=== PATIENT | female | born 1990 | race Two or more races ===

== ENCOUNTER 2025-01-26 08:45 | Inpatient (IN) | payer BC, SELFPAY ==
[2025-01-26] VITALS (62 sets, daily range): BP systolic 98–168; BP diastolic 50–136; PULSE 65–101; RESP 14–20; TEMP 36.4–36.8; O2SAT 85–100; BMI 39.4
--- NOTE | 2025-01-26 11:09 | ESHP_ITS ---
RE: PRAVIN WINKLER : 1990 DATE OF ADMISSION: 01/26/2025 HISTORY OF PRESENT ILLNESS: This is a 34-year-old 3, para 2-0-0-2 with due date of 01/27 with intrauterine at 39 weeks and 6 days. She presents to labor and delivery complaining of contractions. She was initially assessed and found to be about 2 cm. She ambulated for an hour or 2 and was found then to be 5 cm, so she was admitted for early labor. She denies any leaking or bleeding. She reports normal movements. ALLERGIES: NO KNOWN DRUG ALLERGIES. MEDICATIONS: 1. multivitamin 1 p.o. daily. 2. Aspirin 81 mg 1 p.o. daily. PAST MEDICAL HISTORY: Leiomyomatous uterus, advanced maternal age, bilateral inguinal hernias. SOCIAL HISTORY: She denies any alcohol, drug use, or smoking. FAMILY HISTORY: Mother has migraine headaches and hypertension. Brother and sister have depression and anxiety. Maternal grandmother has diabetes. Maternal aunt has breast cancer and diabetes. OBSTETRIC HISTORY: 02/2009, 40 week, normal vaginal delivery, 7-pound male. No complications. 02/2014, 40 week, normal vaginal delivery, 7 pound 2 ounce female. No complications. PAST SURGICAL HISTORY: Abdominoplasty, bilateral inguinal herniorrhaphy. REVIEW OF SYSTEMS: She denies any chest pain, palpitations, cough, fever, shortness of breath, or lower extremity pain. PHYSICAL EXAMINATION: VITAL SIGNS: Blood pressure 120/73, heart rate 88, respirations 18, temperature 98.2, weight 227 pounds. HEENT: Oropharynx and sclera are clear. LUNGS: Clear to auscultation bilaterally. HEART: Regular rate and rhythm. ABDOMEN: Gravid, consistent with estimated weight of 7.5 pounds. PELVIC: Exam per RN notes, 5 cm 80% -2 vertex intact. EXTREMITIES: Nontender. SKIN: No gross rashes or lesion. NEUROLOGIC: No focal deficit. ASSESSMENT AND PLAN: Intrauterine at 39 weeks and 6 days. Labor. Anticipate spontaneous vaginal delivery. Informed consent was obtained. The patient was made aware of the risks, complications, alternatives, and benefits of operative vaginal delivery and delivery, and she agrees with these modes of delivery if indicated. DT: 11:00:42 TT: 11:08:00 Ref: [id number] - TID: [id number]
[2025-01-26 11:25] LABS: Basophils # (Auto) 0.0 Thou/mm3 (0.0-0.2); Basophils % (Auto) 0 % (0-2.5); Eosinophils # (Auto) 0.0 Thou/mm3 (0.0-0.5); Eosinophils % (Auto) 0 % (0-10); Hematocrit 37.3 % (36.0-46.0); Hemoglobin 12.8 g/dL (12.0-16.0); Immature Granulocytes Auto 0.06 Thou/mm3 (0.00-0.00); Lymphocytes # (Auto) 1.5 Thou/mm3 (1.0-4.8); Lymphocytes % (Auto) 14 % (10-50); Mean Corpuscular HGB Conc 34.3 g/dl (31.0-37.0); Mean Corpuscular Hemoglobin 31.3 pg (25.0-35.0); Mean Corpuscular Volume 91 fL (80-100); Monocytes # (Auto) 0.8 Thou/mm3 (0.0-0.8); Monocytes % (Auto) 7 % (0-12); Neutrophils # (Auto) 8.4 Thou/mm3 (1.8-7.7); Neutrophils % (Auto) 78 % (37-80); Nucleated Red Blood Cell # 0.00 Thou/mm3 (0.00-0.00); Nucleated Red Blood Cell % 0 /100 WBC (0); Platelet Count 287 Thou/mm3 (140-440); RDW Standard Deviation 43.7 fL (36.4-46.3); Red Blood Count 4.09 Miln/mm3 (4.00-5.20); White Blood Count 10.8 Thou/mm3 (3.6-11.0)
[2025-01-26 12:01] LABS: Syphilis Nonreactive (Nonreactive)
--- NOTE | 2025-01-26 13:24 | PD.LDPN ---
Documentation for date of: 01/26/25 OB Labor Progress Note Pelvic Exam Dilation (cm): 6 Effacement (%): 60 station: -4 Amniotic membrane status: Ruptured Comments: Clear Contractions Monitor mode: External Contraction frequency: 1-2 Contraction intensity: Moderate Status status: Category ll Assessment and Plan Comments: Recurrent moderate to severe variable decels not improved with amnioinfusion Minimal variability No accelerations Delivery desires Bilateral Tubal Ligation Informed consent was obtained the patient was made aware of the risk complications alternatives and benefits of the proposed delivery and she agrees.
[2025-01-26] MEDS: FAMOTIDINE INJ 10 MG/ML VIAL 2 ML 20 MG IV (13:34)
[2025-01-26] MEDS: METOCLOPRAMIDE INJ 5 MG/ML VIAL 2 ML 10 MG IVP (13:39)
--- NOTE | 2025-01-26 13:54 | PD.GYNPROC ---
Operative Note - [employer] Procedure Date of procedure: 01/26/25 Procedure Performed: Primary low-transverse section via Pfanensteil skin incision Bilateral salpingectomy Indication: IUP 39 weeks 6 days Active labor Multiparity desires voluntary sterilization Category 2 tracing trending toward category 3 Pre-Op diagnosis: IUP 39 weeks 6 days Active labor Multiparity desires voluntary sterilization Category 2 tracing trending toward category 3 Post-Op diagnosis: IUP 39 weeks 6 days Active labor Multiparity desires voluntary sterilization Category 2 tracing trending toward category 3 Endometriosis Adenomyosis with significantly enlarged uterus persisting after delivery (24 week size) Anesthesia type: Epidural Procedure description: After proper informed consent was obtained and the patient was made aware of the risks, complications, alternatives and benefits of the proposed procedure she was taken to the operating room where she underwent induction of spinal anesthesia. She was prepped and draped in the usual sterile fashion. A timeout was performed.? A Pfannenstiel skin incision was made with the scalpel and carried through to the underlying layer of fascia with the Bovie. The fascia was nicked in the midline incision and the incision was extended bilaterally with the Bovie. The inferior aspect of the fascial incision was grasped with Adal clamps elevated and the underlying rectus muscle dissected off with the Bovie. The superior aspect the fascial incision was grasped with Adal clamps elevated and the underlying rectus muscle dissected off with the Bovie. The rectus muscles were in the midline. The peritoneum was grasped between 2 Lee clamps and entered sharply with the Metzenbaum scissors. The peritoneum was extended superiorly and inferiorly with good visualization of the bladder. The vesicouterine peritoneum was incised transversely and the bladder flap created digitally. A [place] blade was inserted. A low transverse incision was made in the uterus with a scapel and the incision was extended digitally. The 's head delivered and the mouth and nose were suctioned with the bulb suction. The shoulder and body delivered atraumatically. The cord was clamped after 30 second delayed cord clamping and the cord was cut.? The infant was handed off to the waiting Pediatric staff, cord blood was collected for lab testing. The placenta was removed complete and intact. The uterus was exteriorized and cleared of all clots and debris. The uterine incision was closed with #1-0 chromic catgut suture in a running interlocking fashion. A second layer of the same suture was used to imbricate the first layer and obtain excellent hemostasis. The vesicouterine peritoneum was closed with 2-0 chromic catgut suture in a running fashion. Attention was turned to the left fallopian tube which was grasped at the fimbriated end with a [place] clamp and using the Enseal X-1 large jaw a left salpingectomy was performed. Hemostasis achieved. Attention was turned to the right fallopian tube which was grasped at the fimbriated end with a [place] clamp and using the Enseal X-1 large jaw a left salpingectomy was performed. Hemostasis achieved. The firm uterus was returned to the abdomen. The gutters were cleared of all clots and debris. The adnexae were revisualized along with the lower uterine segment and all was hemostatic. The peritoneum was closed with 0 chromic catgut suture in running fashion. The rectus muscle was closed with 0 chromic catgut suture. The fascia was closed with 0 PDS beginning at each angle and ending in the center in a running fashion. The subcutaneous tissue was irrigated with warmed normal saline solution and found to be hemostatic. The subcutaneous tissue was closed with 2-0 chromic catgut suture in a running fashion. The skin was closed with 4-0 Monocryl. A Dermabond Prineo dressing was applied and a sterile pressure dressing was applied.? She tolerated the procedure well. Counts were correct. I discussed with the patient the nature of her condition, intraoperative findings and expectation for recovery all questions answered. Specimen: left tube, right tube and other (placenta with marginal cord insertion.) Estimated blood loss (ml): 800 Findings: Live female Cephalic presentation Apgars 8/9 Amniotic fluid clear Uterus 24 week size after delivery with adenomyosis Endometriotic implants of both ovaries, posterior uterus and uterosacral ligaments. Placenta removed complete and intact Placental with marginal cord insertion Complications: none Surgical staff Blake Erickson, SEBASTIÁN Brenner, Surgeon Diagnosis Problem List Completed Was Problem List Reviewed/Reconciled?: Yes
--- NOTE | 2025-01-26 13:59 | ESDS_ITS ---
DS: Providers Provider Date of admission: 01/26/25 10:54 Primary care physician: Physician No Primary/Family Admitting Provider: Dusty Brenner MD Attending Provider on Admission: Dusty Brenner MD Attending Provider on DC: Dusty Brenner MD Discharging Provider: Dusty Brenner MD DS: Diagnosis Problem List Completed Was Problem List Reviewed/Reconciled?: Yes Summary/Hosp Course Peripartum Data Delivery Method: Low Transverse 1: Gender: Female Time Spent with Patient Time attestation: Total time spent providing and/or coordinating discharge services: Exam Vital Signs Temp Pulse Resp BP Pulse Ox 98.3 F 71 16 118/60 100 01/26/25 08:45 01/26/25 13:46 01/26/25 08:45 01/26/25 13:46 01/26/25 13:49 Discharge Plan Plan Patient Disposition: HOME (Self Care) Patient condition on transfer: Stable Prescriptions/Referrals Prescriptions/Med Rec: New hydrocodone-acetaminophen 5-325 mg tablet 1 tab PO Q6H MDD 4 PRN (Reason: pain) Qty: 20 0RF No Action ferrous sulfate [Feosol] 1 TAB tablet 325 mg PO BIDWM Qty: 0 Vitamin * 1 EACH tablet 1 tab PO QDAY Qty: 0 Referrals: No Primary/Family,Physician [Primary Care Provider] Patient/Caregiver Discharge Instructions Discharge Activity: activity as tolerated Other Discharge Activity Instructions:: Follow up office 1 week. A Rx for [place] and Ibuprofen was sent to [facility] from the office. Print Language: Slovenian Stand Alone Forms: Janneth Award Info., Patient Portal Info Letter Planned Discharge Date 01/28/25
[2025-01-26] MEDS: ceFAZolin/D5W 2 GM IV 2 GM/100 ML BAG IV (14:00)
[2025-01-26] MEDS: KETOROLAC INJ 30 MG/ML VIAL IVP (17:11)
[2025-01-26 20:41] LABS: Basophils # (Auto) 0.0 Thou/mm3 (0.0-0.2); Basophils % (Auto) 0 % (0-2.5); Eosinophils # (Auto) 0.0 Thou/mm3 (0.0-0.5); Eosinophils % (Auto) 0 % (0-10); Hematocrit 32.9 % (36.0-46.0); Hemoglobin 11.1 g/dL (12.0-16.0); Immature Granulocytes Auto 0.06 Thou/mm3 (0.00-0.00); Lymphocytes # (Auto) 0.9 Thou/mm3 (1.0-4.8); Lymphocytes % (Auto) 6 % (10-50); Mean Corpuscular HGB Conc 33.7 g/dl (31.0-37.0); Mean Corpuscular Hemoglobin 31.4 pg (25.0-35.0); Mean Corpuscular Volume 93 fL (80-100); Monocytes # (Auto) 1.4 Thou/mm3 (0.0-0.8); Monocytes % (Auto) 8 % (0-12); Neutrophils # (Auto) 14.2 Thou/mm3 (1.8-7.7); Neutrophils % (Auto) 86 % (37-80); Nucleated Red Blood Cell # 0.00 Thou/mm3 (0.00-0.00); Nucleated Red Blood Cell % 0 /100 WBC (0); Platelet Count 246 Thou/mm3 (140-440); RDW Standard Deviation 45.6 fL (36.4-46.3); Red Blood Count 3.54 Miln/mm3 (4.00-5.20); White Blood Count 16.5 Thou/mm3 (3.6-11.0)
[2025-01-26] MEDS: SIMETHICONE 80 MG CHEW PO (20:55)
[2025-01-26 21:11] LABS: HIV Rapid (Source Pt) Non-Reactive
[2025-01-26] MEDS: OXYTOCIN in NS 20 units 20 UNIT/1,000 ML BAG 125 UNIT IV (23:02)
[2025-01-26] MEDS: ONDANSETRON INJ 2 MG/ML INJ 2 ML 4 MG IVP (23:10)
[2025-01-27 00:45] VITALS: BP 117/72; PULSE 73; RESP 16; TEMP 36.7; O2SAT 97
[2025-01-27] MEDS: KETOROLAC INJ 30 MG/ML VIAL IVP (03:01)
[2025-01-27 03:20] VITALS: BP 111/70; PULSE 73; RESP 14; TEMP 36.9; O2SAT 96
--- NOTE | 2025-01-27 05:03 | ESPR_ITS ---
RE: PRAVIN WINKLER : 1990 DATE OF SERVICE: 01/27/2025 S: Postop day #1, the patient denies any problems or complaints. She is voiding. She is ambulating. She is tolerating regular diet. She is passing flatus. She denies any excessive vaginal bleeding. She denies any dizziness or lightheadedness. She denies any chest pain, palpitations, shortness of breath or lower extremity pain. O: Vital Signs: Blood pressure 117/72, heart rate 73, respirations 16, temperature is 98.0, pulse oximetry is 97% on room air. Lungs: Clear to auscultation bilaterally. Heart: Regular rate and rhythm. Abdomen: Dressing dry and intact. Fundus is firm. Extremities: Nontender. LABORATORY DATA: Hemoglobin pre-delivery is 12.8, post-delivery is 11.1. ASSESSMENT: Postop day #1 status post delivery and bilateral salpingectomy. P: Remove dressing. Discontinue IV. web consultant. Encourage ambulation. Possible discharge home tomorrow. DT: 04:20:25 TT: 05:02:00 Ref: [id number] - TID: [id number]
[2025-01-27 09:00] VITALS: BP 120/75; PULSE 97; RESP 18; TEMP 36.9; O2SAT 98
[2025-01-27] MEDS: DOCUSATE SOD 100 MG CAPSULE PO (09:01)
[2025-01-27] MEDS: ENOXAPARIN SOD INJ 40 MG/0.4 ML SYRINGE SC (09:02)
[2025-01-27] MEDS: HYDROcodone/APAP 5/325 TABLET 2 TAB PO (11:15)
[2025-01-27] MEDS: SIMETHICONE 80 MG CHEW PO ×2 (13:37→19:49)
[2025-01-27] MEDS: Milk Of Magnesia Susp 30 ML UDC PO (13:37)
[2025-01-27 17:00] VITALS: BP 114/58; PULSE 88; RESP 18; TEMP 36.3; O2SAT 97
[2025-01-27 19:55] VITALS: BP 112/73; PULSE 96; RESP 18; TEMP 36.8; O2SAT 96
[2025-01-27] MEDS: IBUPROFEN TAB 400 MG TABLET 800 MG PO (23:30)
[2025-01-28 03:45] VITALS: BP 110/70; PULSE 70; RESP 18; TEMP 36.5; O2SAT 98
[2025-01-28 07:45] VITALS: BP 123/70; PULSE 88; RESP 16; TEMP 36.4; O2SAT 98
[2025-01-28] MEDS: IBUPROFEN TAB 400 MG TABLET 800 MG PO (07:46)
--- NOTE | 2025-01-28 07:48 | ESPR_ITS ---
RE: PRAVIN WINKLER : 1990 DATE OF SERVICE: 01/28/2025 S: Postop day 2, the patient denies any problems or complaints. O: Vital Signs: Stable. Afebrile. Abdomen: Incision clear and intact. Extremities: Nontender. ASSESSMENT: Postop day #2 status post delivery and bilateral salpingectomy. P: Discharge home. Discharge instructions given. Follow up in the office in 6 weeks. DT: 07:10:41 TT: 07:46:00 Ref: [id number] - TID: [id number]
--- NOTE | 2025-01-28 09:19 | OBDSUM_ITS ---
Data (Nath) Data Hx Section: No : 3 Term: 2 : 0 Livin Abortions: Spontaneous & Theraputic: 0 Delivery Data (Nath) Labor Data Initiation of labor: Spontaneous Induction/Augmentation Agent: None ROM date: 01/26/25 ROM time: 12:42 Amniotic membrane rupture type: Spontaneous Amniotic fluid description: Clear Delivery Data EDC: 01/27/25 EDC calculated by:: LMP/early US confirmation Onset of labor date: 01/26/25 Onset of labor time: 10:50 Complete dilation date: 01/26/25 Complete dilation time: 14:24 [place] delivery date: 01/26/25 [place] delivery time: 14:24 Gestational age (weeks): 39 Gestational age (days): 6 Placenta delivery date: 01/26/25 Placenta delivery time: 14:25 Stage 1 total time: Labor - Stage 1 Duration 3 hours and 34 minutes Delivered by: [place] Delivery nurse: Cady Mayenorn nurse: Diana [employer] Senior Officer at delivery: No Support person(s) at delivery: FOB Other staff at delivery: Flory, rachel Lynch, global account manager [employer], leather dresser Delivery Method Delivery method: Low Transverse Presentation: Vertex position: OP Anesthesia Type Anesthesia Type: Epidural Anesthesia type: Epidural Placenta Placenta delivery description: Manual Removal Cord blood sent to lab: Yes cord blood collection: Cord Blood Type Episiotomy Episiotomy description: None EBL Estimated blood loss (ml): 800 Umbilical Cord cord description: 3 Vessels Data (Nath) Data order: 1 's gender: Female Identification band number: [id number] weight (gms): 7 lb 6.873 oz Weight (pounds): 7 lbs and 6.9 ozs [place] length: 21 in 1 minute: 8 5 minutes: 9
[2025-01-28] MEDS: ENOXAPARIN SOD INJ 40 MG/0.4 ML SYRINGE SC (09:22)
[2025-01-28] MEDS: DOCUSATE SOD 100 MG CAPSULE PO (09:22)
== END 2025-01-28 10:45 | disposition home or self-care (01) | DRG 785 ==
LOC: S4SX 13:40 → S4NX 16:25 → S4SX 01-27 05:36 → S4NX 01-27 05:37
PROVIDERS: Admitting Provider Specialist; Visit Provider Specialist
PROC: 0UL70ZZ Occlusion of Bilateral Fallopian Tubes, Open Approach (ICD-10-PCS; CPT 59514; principal; 2025-01-26 14:30)
DX: O76 Abnormality in fetal heart rate and rhythm complicating labor and delivery (principal); Z30.2 Encounter for sterilization; Z37.0 Single live birth; O43.193 Other malformation of placenta, third trimester; N80.03 Adenomyosis of the uterus; Z3A.39 39 weeks gestation of pregnancy
CPT/HCPCS: 36415; 59025; 85025; 86780; 86850; 86900; 86901; A4217; A4314; A4649; J0689; J1650; J1885; J2274; J2405; J2590; J2704; J2765; J2795; J3010; J3490; A9270; J2270